=== PATIENT | male | born 1985 | race Caucasian/White ===

== ENCOUNTER 2017-03-18 20:37 | Emergency (ER) | payer OTHER ==
[~2017-03-18] VITALS: Ht 172.7 cm; Wt 68.0 kg
[2017-03-18 20:53] VITALS: BP 150/87
[2017-03-18] MEDS ORDERED: GLUCAGON,HUMAN RECOMBINANT 1 MG/ML VIAL. ONE (21:17)
--- NOTE | 2017-03-18 21:26 | PHYS DOC ---
Past Medical History Past Medical History: Other Additional Past Medical Histor: CONGENITAL HEART DISEASE (AORTIC AND BICUPID) Past Surgical History: No Surgical History Alcohol Use: None Drug Use: None Adult General Chief Complaint Chief Complaint: FOREIGN BODY HPI HPI Patient is a 31 year old gentleman who presents to the ER today secondary to a foreign body obstruction of the esophagus. Patient reports that he was eating steak and felt a fullness in his chest. Patient reports this happened several times in the past. However usually resolves spontaneously this time after approximately an hour over not resolving he came to the ER. Patient denies any shortness of breath. Patient has any other symptomatology. Patient has any fevers shakes chills nausea vomiting diarrhea chest pain shortness of breath cough cold or runny nose. Patient has no past medical history. Patient has no allergies. Mother reports that when he was a child he was told that he had some kind of heart problem that she does not know further details regarding this. Patient's physical exam the ED was unremarkable. Patient's alert awake oriented 3. Patient's heart was regular rate and rhythm. Lungs were clear. Abdomen was soft nontender no rebound or guarding. Patient's airway was stable. Patient is able to speak without any difficulty. Patient was obviously unable to tolerate his secretions well. Patient would have periods of emesis of saliva almost every 5 minutes or so while stocking him. Patient was unable tolerate water. Patient's ER course was significant for receiving a packet of easy gas. Approximately 1 minute after receiving the ED gas patient felt immediate relief in his chest. Patient's been able tolerate liquids in the ED since. Patient drank 3 cups ordered for me and was able tolerate it well. Patient had no further regurgitation of saliva. Assessment and plan Esophageal food bolus. Patient's had multiple episodes of this. I have advised patient that he see Dr. Kingsley in order to get a referral to see a GI specialist to have endoscopy done to rule out strictures or other esophageal pathology including cancer. Patient will be discharged home in stable condition. Patient' s lungs are clear. There is no crepitance. There is no evidence of mediastinal pneumo thorax. Review of Systems Review of Systems Constitutional: Denies fever or chills [] Eyes: Denies change in visual acuity, redness, or eye pain [] All other review systems are negative except as documented in the history of present illness portion. Current Medications Current Medications Current Medications Medications (Trade) Dose Ordered Sig/Karlee Start Time Stop Time Status Last Admin Dose Admin Glucagon (Glucagen) 1 mg STK-MED ONCE 03/18/17 21:17 03/18/17 21:18 DC Allergies Allergies Allergies Coded Allergies Type Severity Reaction Last Updated Verified No Known Drug Allergies 07/15/15 No Physical Exam Physical Exam Constitutional: Well developed, well nourished, no acute distress, non-toxic appearance. [] HENT: Normocephalic, atraumatic, bilateral external ears normal, oropharynx moist, no oral exudates, nose normal. [] Eyes: PERRLA, EOMI, conjunctiva normal, no discharge. [] Neck: Normal range of motion, no tenderness, supple, no stridor. [] Cardiovascular:Heart rate regular rhythm, Lungs & Thorax: Bilateral breath sounds clear to auscultation [] Abdomen: Bowel sounds normal, soft, no tenderness, no masses, no pulsatile masses. [] Skin: Warm, dry, no erythema, no rash. [] Back: No tenderness, no CVA tenderness. [] Extremities: No tenderness, no cyanosis, no clubbing, ROM intact, no edema. [] Neurologic: Alert and oriented X 3, normal motor function, normal sensory function, no focal deficits noted. [] Psychologic: Affect normal, judgement normal, mood normal. [] Current Patient Data Vital Signs Vital Signs Date Time Temp Pulse Resp B/P (MAP) Pulse Ox O2 Delivery O2 Flow Rate FiO2 03/18/17 20:53 98.2 78 16 150/87 (108) 99 Room Air 98.2 EKG EKG [] Radiology/Procedures Radiology/Procedures [] Course & Med Decision Making Course & Med Decision Making Pertinent Labs and Imaging studies reviewed. (See chart for details) [] Dragon Disclaimer Dragon Disclaimer This electronic medical record was generated, in whole or in part, using a voice recognition dictation system. Departure Departure Impression: Primary Impression: Esophageal obstruction due to food impaction Disposition: HOME, SELF-CARE Condition: IMPROVED Referrals: LEATHA KINGSLEY MD (PCP) Additional Instructions: CHEW YOUR FOOD WELL!! Follow up with your doctor for a referral to see a GI specialist. You will need an endoscopy scheduled as an outpatient. RIGO BRUNO MD Mar 18, 2017 21:26
[2017-03-18] MEDS ORDERED: GLUCAGON,HUMAN RECOMBINANT 1 MG/ML VIAL. IM ONE (21:30)
== END 2017-03-18 21:31 | disposition home or self-care (01) ==
LOC: ER 20:37
DX: K22.2 Esophageal obstruction (principal); T18.128A Food in esophagus causing other injury, initial encounter; X58.XXXA Exposure to other specified factors, initial encounter; Y93.89 Activity, other specified; Y92.89 Other specified places as the place of occurrence of the external cause; Y99.8 Other external cause status
CPT/HCPCS: 99281

== ENCOUNTER → 2017-04-28 | Day surgery (SDC) | payer OTHER ==
[~2017-04-28] MED LIST: HYDROmorphone 2 MG/ML VIAL IV PRN; IV RINGERS,LACTATED 1000ML 1,000 ML IV SCH; LIDOCAINE 1% 1 ML SYRINGE. ID PRN; MORPHINE SULFATE 2 MG/ML DISP.SYRIN. IV PRN; ONDANSETRON PF 4 MG/2 ML VIAL. IV PRN; PROCHLORPERAZINE 10 MG/2 ML VIAL. IV PRN; PROPOFOL 20 ML IV ONE; fentaNYL PF VIAL 100 MCG/2 ML VIAL IV PRN
[2017-04-28 08:50] VITALS: BP 110/70
--- NOTE | 2017-04-29 16:28 | PATHOLOGY ---
PATHOLOGY REPORT * * * * * * * * FINAL DIAGNOSIS: Esophageal biopsies, distal esophagus: - Esophagitis with eosinophils. See comment. (JPM:kassandra; 04/29/2017) COMMENT: Sections of the distal esophageal biopsy reveal multiple segments of hyperplastic squamous esophageal mucosa. There are increased intraepithelial eosinophils, with focal areas showing greater than 20-30 intraepithelial eosinophils per high-power field. The differential diagnosis of esophagitis with eosinophils includes reflux esophagitis, "pill esophagitis", and eosinophilic esophagitis. The focally prominent numbers of intraepithelial eosinophils is suggestive of eosinophilic esophagitis. Correlate clinically. (JPM:kassandra; 04/29/2017) REPORT ELECTRONICALLY SIGNED BY: Onofre Beaver M.D. DATE/TIME: 04/29/2017 16:28 * * * * * * * * GROSS PATHOLOGY: Received in formalin labeled "Buddy Rubin, distal esophagus," are multiple segments of krishnan soft tissue measuring from 0.1 up to 0.3 cm in maximum dimension. The specimen is submitted entirely in cassette A1. (JPM; 04/28/17) INITIAL CPT CODE(S): A; 84818 Professional services performed by [facility] [place] [address] Technical services performed by [facility] at [address] [place] [address]. SPECIMEN(S) RECEIVED: A.Distal esophagus biopsy, r/o Marie's CLINICAL HISTORY: Dysphagia PATIENT: BUDDY RUBIN /AGE: 906/23/1985 (Age: 31) PATIENT #: [id number] ALT CASE #: SPECIMEN COLLECTION DATE: 04/28/2017 SPECIMEN RECEIVED DATE: 04/28/2017 [facility] - [id number] [place] [address] - PHONE: [phone] * * * END OF REPORT * * *
== END | disposition home or self-care (01) ==
LOC: ENDOS 06:58
PROVIDERS: ATTEND Internal Medicine Gastroenterology
DX: K22.2 Esophageal obstruction (principal); K21.0 Gastro-esophageal reflux disease with esophagitis; Z72.89 Other problems related to lifestyle
CPT/HCPCS: 43239; 43450; J2704